=== PATIENT | male | born 1980 | race Caucasian/White ===

== ENCOUNTER 2024-03-12 21:10 | Emergency (ER) | payer BC, SELFPAY ==
[2024-03-12 21:19] VITALS: BP 151/105; PULSE 97; TEMP 36.7; O2SAT 99; BMI 23.8
--- NOTE | 2024-03-12 21:26 | ED.EAR1 ---
HPI - Ear Problem General Chief complaint: Ear Stated complaint: Foreign body in ear Time Seen by Provider: 03/12/24 21:12 Source: patient Mode of arrival: walk-in Limitations: no limitations History of Present Illness HPI Narrative: 43-year-old male presents to the emergency department for discomfort to his left ear. Earlier today he was using an Jose R wrench to scratch in the area of his ear and he had some discomfort and it seems muffled. He states is not as muffled as it was earlier, it seems to have improved. He did not have any blood come out of the ear canal but he had put some earplugs in his ears and when he took the left 1 out there was a little bit of blood on it. Related Data Previous Rx's ?Medication ?Instructions ?Recorded [id number] 3.3 4 drp otic (ear) TID #10 mL 03/12/24 mg-3 mg-10 mg-0.5 mg/mL ear drops,susp (Cortisporin-TC) Allergies Allergy/AdvReac Type Severity Reaction Status Date / Time No Known Drug Allergies Allergy Verified 03/12/24 21:19 Review of Systems ROS Narrative A ten point review of systems is negative except as noted above. PFSH PFSH Social History Little interest or pleasure in doing things: not at all Feeling down, depressed, or hopeless: not at all Exam Narrative Exam Narrative: Nurses note and vital signs reviewed and patient is not hypoxic. General: The patient appears well and in no apparent distress. Patient is resting comfortably on cart. Skin: Warm, dry, no pallor noted. There is no rash noted. Head: Normocephalic, atraumatic Eye: Normal conjunctiva, no drainage Ears, Nose, Mouth, and Throat: oral mucosa is moist. Nares patent. Left external canal has a small amount of dried blood in abrasion is present on the posterior wall of the external canal. The TM appears to be intact. Cardiovascular: Regular Rate and Rhythm Respiratory: Patient is in no distress, no accessory muscle use GI: Normal bowel sounds, no tenderness to palpation, no masses appreciated. No rebound, guarding, or rigidity noted. Musculoskeletal: No joint swelling Neurological: Awake and alert and oriented Psychiatric: Cooperative Constitutional Vital Signs, click to edit/add: Last Vital Signs Temp 98.1 F 03/12/24 21:19 Pulse 97 H 03/12/24 21:19 Resp 19 03/12/24 21:19 BP 151/105 H 03/12/24 21:19 Pulse Ox 99 03/12/24 21:19 O2 Del Method Room Air 03/12/24 21:19 Course Vital Signs Vital signs: Vital Signs Temperature 98.1 F 03/12/24 21:19 Pulse Rate 97 H 03/12/24 21:19 Respiratory Rate 19 03/12/24 21:19 Blood Pressure 151/105 H 03/12/24 21:19 Pulse Oximetry 99 03/12/24 21:19 Oxygen Delivery Method Room Air 03/12/24 21:19 Temperature 98.1 F 03/12/24 21:19 Pulse Rate 97 H 03/12/24 21:19 Respiratory Rate 19 03/12/24 21:19 Blood Pressure 151/105 H 03/12/24 21:19 Pulse Oximetry 99 03/12/24 21:19 Oxygen Delivery Method Room Air 03/12/24 21:19 Medical Decision Making [facility] Narrative Medical decision making narrative: The patient has an abrasion of his external canal and is placed on Cortisporin. No evidence of tympanic perforation. He was referred to ENT if symptoms do not improve. There is no foreign body present. Differential Diagnosis Differential Diagnosis: Tympanic membrane perforation, abrasion, foreign body Discharge Plan Discharge Chief Complaint: Ear Clinical Impression: Ear abrasion Patient Disposition: Home, Self-Care Time of Disposition Decision: 21:25 Condition: Good Mode of Transportation: Private Vehicle Prescriptions / Home Meds: New Cortisporin-TC 3.3-3-10-0.5 mg/mL drops,suspension 4 drp otic (ear) TID Qty: 10 0RF Print Language: Tajik Instructions: Ear Abrasion (ED) Referrals: Latasha Galvez MD [Physician] - 1 week RISHABH SCOTT [Primary Care Provider] - 1 week
== END 2024-03-12 21:37 | disposition home or self-care (01) ==
PROVIDERS: Emergency Provider Emergency Medicine; PCP Nurse Practitioner Family
DX: S00.412A Abrasion of left ear, initial encounter (principal); X58.XXXA Exposure to other specified factors, initial encounter
CPT/HCPCS: 99283